=== PATIENT | male | born 1980 | race American Indian/Alaskan Native ===

== ENCOUNTER 2017-09-29 06:05 | Emergency (ER) | payer SELFPAY ==
[2017-09-29] MEDS ORDERED: Sodium Chloride 0.9% 1,000 ML IV ONE (06:38)
[2017-09-29] MEDS ORDERED: Sodium Chloride 0.9% 1,000 ML ONE (06:42)
[2017-09-29 07:54] LABS: BASO % 0.3 % (0.0-2.0); EOS # 0.1 K/uL (0.0-0.7); EOS % 0.9 % (0.0-4.0); HEMOGLOBIN 13.6 g/dL (12.0-18.0); LYMPH # 1.8 K/uL (1.0-4.3); LYMPH % 15.1 % (20.0-40.0); MEAN CELL VOLUME 91.1 fL (80.0-94.0); MEAN CORPUSCULAR HEMOGLOBIN 30.4 pg (27.0-31.0); MEAN CORPUSCULAR HGB CONC 33.4 g/dL (33.0-37.0); MEAN PLATELET VOLUME 8.9 fL (7.2-11.7); MONO # 1.4 K/uL (0.0-0.8); MONO % 11.6 % (0.0-10.0); NEUT # 8.6 K/uL (1.8-7.0); NEUT % 72.1 % (50.0-75.0); RBC 4.48 Mil/uL (4.40-5.90); RED CELL DISTRIBUTION WIDTH 13.9 % (11.5-14.5); WHITE BLOOD COUNT 11.9 K/uL (4.8-10.8)
--- NOTE | 2017-09-29 08:03 | C.PDOC ---
History Of Present Illness 36 year old male, with no significant past medical history, presents to ED for evaluation of body aches, fever, chills, and watery diarrhea for the past 2 days. Pt also states that he developed few episodes of vomiting last night. Denies severe headache, dizziness, sore throat, drooling, dysphagia, dyspnea, cough, CP, SOB, wheezing, abdominal pain, hematemesis, melena, dysuria, hematuria, back pain,. Ambulate to ED. Time Seen by Provider: 09/29/17 07:24 Chief Complaint (Nursing): Flu-like Symptoms History Per: Patient History/Exam Limitations: no limitations Onset/Duration Of Symptoms: Days (2) Current Symptoms Are (Timing): Still Present Location Of Pain: Diffuse Myalgias Sick Contacts (Context): None Associated Symptoms: Fever, Chills, Myalgias, Vomiting, Diarrhea. denies: Sore Throat, Cough, Sputum, Neck Pain, Sinus Drainage, Nasal Congestion Ear Symptoms: Bilateral: None Recent travel outside of the [place]: No Additional History Per: Patient Past Medical History Reviewed: Historical Data, Nursing Documentation, Vital Signs Vital Signs: Last Vital Signs Temp 99 F 09/29/17 09:45 Pulse 96 H 09/29/17 09:45 Resp 18 09/29/17 09:45 BP 118/80 09/29/17 09:45 Pulse Ox 96 09/29/17 09:45 Family History: States: Unknown Family Hx - Social History Hx Alcohol Use: No Hx Substance Use: No - Immunization History Hx Tetanus Toxoid Vaccination: No Hx Influenza Vaccination: No Hx Pneumococcal Vaccination: No Review Of Systems Except As Marked, All Systems Reviewed And Found Negative. Constitutional: Positive for: Fever, Chills, Other (body aches) ENT: Negative for: Ear Pain, Nose Discharge, Nose Congestion, Throat Pain Cardiovascular: Negative for: Chest Pain, Palpitations Respiratory: Negative for: Cough, Shortness of Breath Gastrointestinal: Positive for: Vomiting, Diarrhea. Negative for: Abdominal Pain Genitourinary: Negative for: Dysuria, Frequency, Hematuria Musculoskeletal: Negative for: Neck Pain, Back Pain Neurological: Negative for: Headache, Dizziness Physical Exam - Physical Exam Appears: Well, Non-toxic, No Acute Distress Skin: Normal Color, Warm, Dry, No Rash Head: Normacephalic Eye(s): bilateral: PERRL Ear(s): Bilateral: Normal Nose: No Flaring, No Discharge Oral Mucosa: Moist, No Drooling Tongue: Normal Appearing Lips: Normal Appearing Throat: No Erythema, No Drooling Neck: Trachea Midline, Supple Cardiovascular: Rhythm Regular, No JVD Respiratory: No Decreased Breath Sounds, No Accessory Muscle Use, No Stridor, No Wheezing Gastrointestinal/Abdominal: Soft, No Tenderness, No Distention, No Guarding Back: No CVA Tenderness Extremity: Normal ROM, No Pedal Edema, No Deformity Neurological/Psych: Oriented x3, Normal Speech ED Course And Treatment - Laboratory Results Result Diagrams: 09/29/17 07:48 09/29/17 07:48 Lab Interpretation: No Acute Changes O2 Sat by Pulse Oximetry: 100 (RA) Pulse Ox Interpretation: Normal Progress Note: Blood work, urinalysis, influenza AB ordered and reviewed. Pt was given Tylenol, Toradol, Zofran, Pepcid, and IV fluids. On re-evaluation, pt reports moderate improvement, and request discharges. FEver improved, hemodynamicaly stable. non-toxic. Tolerate Po well in Ed. Ambulatory in Ed with stable gait. PuslEOx 96% RA. Neck: Supple, (-) meningeal sign. Lungs: CTA B/L, BS equal B/L. CVS: (+)S1S2, reg. Abd: benign, (-) guarding, (-) rebound. Neurologicaly intact. Blood work review and appears normal. Influenza (-). Pt has clinical findings c/w fever, N/V/D r/o viral illness. Pt Advised and ref. to f/u with PMD in 1-2 days for re-eval. return to Ed if any worsening or new changes. Disposition Counseled Patient/Family Regarding: Studies Performed, Diagnosis, Need For Followup, Rx Given - Disposition Referrals: [facility] [Outside] Disposition: HOME/ ROUTINE Disposition Time: 09:02 Condition: STABLE Additional Instructions: ENCOURAGE FLUIDS DIET RESTRICTION FOR 1-2 DAYS BRAT DIET- BANANA, RICE, APPLE SAUCE, TOAST. ADVANCE TOLERATED TAKE MEDICATION PRESCRIBED FOLLOW UP WITH PMD IN 2-3 DAYS FOR RE-EVALUATION. RETURN TO ED IF ANY WORSENING OR NEW CHANGES. Prescriptions: Famotidine [Pepcid] 20 mg PO BID #14 tab Ondansetron ODT [Zofran ODT] 1 odt PO BID PRN #6 odt PRN Reason: Nausea/Vomiting Instructions: Gastroenteritis (ED), Acute Nausea and Vomiting (ED), Acute Diarrhea (ED) Forms: [facility] (Maori), Work Excuse - Clinical Impression Clinical Impression: Vomiting and diarrhea, Viral illness - PA / CORRESPONDENCE COORDINATOR / Resident Statement MD/DO has reviewed & agrees with the documentation as recorded. - Scribe Statement The provider has reviewed the documentation as recorded by the Scribe Marilu Petty All medical record entries made by the Tanyaibchristiano were at my direction and personally dictated by me. I have reviewed the chart and agree that the record accurately reflects my personal performance of the history, physical exam, medical decision making, and the department course for this patient. I have also personally directed, reviewed, and agree with the discharge instructions and disposition.
[2017-09-29 08:15] LABS: GFR AFRICAN-AMERICAN > 60; GFR NON-AFRICAN AMERICAN > 60
[2017-09-29 08:27] LABS: BLOOD UREA NITROGEN 11 mg/dL (9-20)
[2017-09-29 08:49] LABS: SQUAMOUS EPITHIAL < 1 /hpf (0-5); URINE BILIRUBIN NEGATIVE (NEGATIVE); URINE CLARITY Clear (Clear); URINE COLOR Yellow (YELLOW); URINE GLUCOSE (UA) NORMAL (Normal); URINE LEUKOCYTE ESTERASE NEG Leu/uL (Negative); URINE NITRATE NEGATIVE (NEGATIVE); URINE PROTEIN NEGATIVE (NEGATIVE); URINE UROBILINOGEN NORMAL mg/dL (0.2-1.0)
[2017-09-29 08:54] LABS: URINE BLOOD NEGATIVE (NEGATIVE)
[2017-09-29 09:46] VITALS: BP 118/80; PULSE 96; RESP 18; TEMP 99
[2017-09-29 18:44] VITALS: O2SAT 100
== END 2017-09-29 10:15 | disposition home or self-care (01) ==
LOC: C.ER 06:05
DX: B34.9 Viral infection, unspecified (principal); R11.10 Vomiting, unspecified; R19.7 Diarrhea, unspecified
CPT/HCPCS: 80048; 81001; 85025; 87040; 87804; 96361; 96374; 96375; 99284; J1885; J2405; J7040